=== PATIENT | female | born 1955 | race Caucasian/White ===

== ENCOUNTER 2023-02-22 09:33 | Outpatient (AMB) | payer MEDICARE, MEDICAID, SELFPAY ==
--- NOTE | 2023-02-22 09:40 | HO.NEPHOV_ITS ---
HPI HPI Comments History of Present Illness Details I had the privilege of seeing Luma accompanied by her in the office today. She has been having low blood sugars in the morning. She is not feeling dizzy. Her blood pressure has been at goal.ose REN-inhibitor. She has not had any blood work for renal functions recently. She does not take any nonsteroidal anti-inflammatory medications. Her levothyroxine dose has been adjusted recently. She denies any nausea, vomiting, diarrhea, shortness of breath, orthostatic symptoms, chest pain, proximal nocturnal dyspnea, orthopnea or pedal edema. She had no recent UTIs. She tries to be compliant with ad equate fluid intake. She is not taking any Jardiance now. FORMERLY [facility] Medical History (Updated 02/22/23 @ 13:26 by Kennedy Myers MD) Cervical cancer Thyroid cancer Hypertension Chronic kidney disease, stage 3a Surgical History (Updated 02/22/23 @ 09:48 by Vicky Welch MA) History of carpal tunnel surgery History of heart artery stent History of appendectomy History of cholecystectomy Family History Brother Diabetes Social History (Updated 02/22/23 @ 09:47 by iVcky Welch MA) Alcohol intake: never Patient Tobacco Use Status: Current everyday Tobacco user Vital Signs 02/22/23 09:42 Height 5 ft 4 in Weight 162 lb BMI 27.8 BP 130/60 Blood Pressure Location Lt brachial Position Sitting Pulse 79 Pulse Source Pulse Oximeter Pulse Oximetry (%) 99 Oxygen Delivery Method Room Air Physical Exam Vital Signs: Last Vital Signs Pulse 79 02/22/23 09:42 BP 130/60 02/22/23 09:42 Pulse Ox 99 02/22/23 09:42 Oxygen Delivery Method Room Air 02/22/23 09:42 BMI result Body Mass Index 27.8 Const General: comfortable and no acute distress Orientation/consciousness: patient oriented x3 HEENT Head: Yes normocephalic Mouth: Normal oral and palatal mucosa present Eyes EOM: EOMs intact bilaterally Neck Neck: Yes supple Resp Auscultation: clear to auscultation bilaterally Cardio Jugular venous distension: no JVD Rate: regular rate GI Palpation (GI): Soft to palpation Auscultation: normal bowel sounds General: Yes no CVA tenderness Back/Spine/Pelvis Back: no CVA tenderness Skin General skin exam: no rashes or lesions noted Neuro General: patient oriented x3 and moves all extremities Extrem General: Yes no pedal edema Assessment & Plan Assessment & Plan (1) Hypertension: Code(s): I10 - Essential (primary) hypertension Qualifiers: Hypertension type: primary hypertension Qualified Code(s): I10 - Essential (primary) hypertension (2) Chronic kidney disease, stage 3a: Code(s): N18.31 - Chronic kidney disease, stage 3a Plan Luma is known to have mild chronic kidney disease at baseline. She has been having low blood sugars in the mornings. She was advanced to cut back on her insulin at night. She has not had any significant hypoglycemias. Blood pressure has been at goal. She is on REN-inhibitor. She is not on any Jardiance she avoids nonsteroidal anti-inflammatory medications and maintains go od hydration. She has history of hyperkalemia. She has not had any renal function or electrolytes checked recently. I ordered the same. She will be a great candidate for SGLT2 I. Her diabetic regimen needs to be optimized. I did not make any other medication changes today. All questions answered. Follow-up given. Orders: Orders Creatinine Today I10 - Essential (primary) hypertension, N18.31 - Chronic kidney disease, stage 3a Electrolytes Today I10 - Essential (primary) hypertension, N18.31 - Chronic kidney disease, stage 3a Blood Urea Nitrogen Today I10 - Essential (primary) hypertension, N18.31 - Chronic kidney disease, stage 3a Protein Creatinine Ratio, Ur Today I10 - Essential (primary) hypertension, N18.31 - Chronic kidney disease, stage 3a Coding Level of Care Code Est Pt Level 3 (13892) Diagnoses Primary hypertension I10 Hypertension type: primary hypertension Chronic kidney disease, stage 3a N18.31 Results Reviewed Nephrology Results: No Data to Display
[2023-02-22 09:42] VITALS: BP 130/60; PULSE 79; O2SAT 99; BMI 27.8
== END 2023-02-22 10:14 | disposition home or self-care (01) ==
PROVIDERS: PCP Internal Medicine; Visit Provider Internal Medicine Nephrology
DX: I10 Essential (primary) hypertension (principal); N18.31 Chronic kidney disease, stage 3a
CPT/HCPCS: 99213

== ENCOUNTER → 2023-02-22 09:33 | Outpatient (BNVA) | payer MEDICARE, MEDICAID, SELFPAY | PROVIDERS: PCP Internal Medicine; Visit Provider Internal Medicine Nephrology | DX: I12.9 Hypertensive chronic kidney disease with stage 1 through stage 4 chronic kidney disease, or unspecified chronic kidney disease (principal); N18.31 Chronic kidney disease, stage 3a | CPT/HCPCS: 99212 ==

== ENCOUNTER 2023-04-20 08:54 | Outpatient (REF) | payer MEDICARE, MEDICAID, SELFPAY ==
[2023-04-20 13:48] LABS: Anion Gap 11 (12-20); Blood Urea Nitrogen 9 mg/dL (9-16); Carbon Dioxide 25 mmol/L (22-29); Chloride 109 mmol/L (96-108); Estimated Glomerular Filt Rate > 60; Potassium 4.3 mmol/L (3.3-5.1); Sodium 141 mmol/L (135-145)
[2023-04-20 14:04] LABS: Protein/Creatinine Ratio, Ur 0.16 (<0.2); Total Protein Urine Random 16 mg/dL (<12)
== END 2023-04-20 08:55 | disposition home or self-care (01) ==
LOC: HO.HKASLDS 08:54
PROVIDERS: Visit Provider Internal Medicine Nephrology
DX: I12.9 Hypertensive chronic kidney disease with stage 1 through stage 4 chronic kidney disease, or unspecified chronic kidney disease (principal); N18.31 Chronic kidney disease, stage 3a
CPT/HCPCS: 36415; 80051; 82565; 82570; 84156; 84520

== ENCOUNTER 2023-05-04 13:26 | Outpatient (AMB) | payer MEDICARE, MEDICAID, SELFPAY ==
--- NOTE | 2023-05-04 13:43 | HO.NEPHOV_ITS ---
HPI HPI Comments History of Present Illness Details I had the privilege of seeing Luma accompanied by her in the office today. She has been having low blood sugars in the morning. She is not feeling dizzy. Her blood pressure has been at goal. She had a fall ( not mechanical) 48 hours ago and sustained injury on the left flank and left shoulder . She has excruciating pain at the left flank where the bruise is. She denies chest pain, warning symptoms, palpitations or syncope associated with the event. Her BS was OK at that time. She did not take any nonsteroidal anti- inflammatory medications but only Tylenol. Her levothyroxine dose has been adj usted recently. She denies any nausea, vomiting, diarrhea, shortness of breath, orthostatic symptoms, chest pain, proximal nocturnal dyspnea, orthopnea or pedal edema. She had no recent UTIs. She tries to be compliant with adequate fluid intake. She is taking any Jardiance now. She feels she has dyspnea after the fall. REPLACED BY [facility] Medical History (Updated 05/04/23 @ 14:17 by Kennedy Myers MD) Cervical cancer Thyroid cancer Hypertension Chronic kidney disease, stage 3a Surgical History History of carpal tunnel surgery History of heart artery stent History of appendectomy History of cholecystectomy Family History Brother Diabetes Social History Alcohol intake: never Patient Tobacco Use Status: Current everyday Tobacco user Vital Signs 05/04/23 13:45 Height 5 ft 4 in Weight 155 lb 2 oz BMI 26.6 BP 116/60 Blood Pressure Location Rt brachial Position Sitting Pulse 73 Pulse Source Pulse Oximeter Pulse Oximetry (%) 98 Oxygen Delivery Method Room Air Physical Exam Vital Signs: Last Vital Signs Pulse 73 05/04/23 13:45 BP 116/60 05/04/23 13:45 Pulse Ox 98 05/04/23 13:45 Oxygen Delivery Method Room Air 05/04/23 13:45 BMI result Body Mass Index 26.6 Const General: comfortable and no acute distress Orientation/consciousness: patient oriented x3 HEENT Head: Yes normocephalic Mouth: Normal oral and palatal mucosa present Eyes EOM: EOMs intact bilaterally Neck Neck: Yes supple Resp Auscultation: clear to auscultation bilaterally Cardio Jugular venous distension: no JVD Rate: regular rate GI Palpation (GI): Soft to palpation Auscultation: normal bowel sounds General: Yes no CVA tenderness Back/Spine/Pelvis Other: Bruise over the left flank with tenderness Back: no CVA tenderness Skin General skin exam: no rashes or lesions noted Neuro General: patient oriented x3 and moves all extremities Extrem General: Yes no pedal edema Assessment & Plan Assessment & Plan (1) Chronic kidney disease, stage 3a: Code(s): N18.31 - Chronic kidney disease, stage 3a (2) Hypertension: Code(s): I10 - Essential (primary) hypertension Qualifiers: Hypertension type: primary hypertension Qualified Code(s): I10 - Essential (primary) hypertension (3) Fall: Code(s): W19.XXXA - Unspecified fall, initial encounter Qualifiers: Encounter type: initial encounter Qualified Code(s): W19.XXXA - Unspecified fall, initial encounter Plan Luma is known to have mild chronic kidney disease at baseline. She has been having low blood sugars in the mornings. She has not had any significant hypoglycemias. Blood pressure has been at goal. She is on REN-inhibitor. She is on any Jardiance. she avoids nonsteroidal anti-inflammatory medications and maintains good hydration. She has history of hyperkalemia. She has not had any renal function or electrolytes checked recently. I asked her to go to ER for eval especially to R/O rib fracture , pneumothorax etc. I did not make any other medication changes today. All questions answered. Follow-up given. Orders: Orders Blood Urea Nitrogen Today I10 - Essential (primary) hypertension, N18.31 - Chronic kidney disease, stage 3a, W19.XXXA - Unspecified fall, initial encounter Creatinine Today I10 - Essential (primary) hypertension, N18.31 - Chronic kidney disease, stage 3a, W19.XXXA - Unspecified fall, initial encounter Electrolytes Today I10 - Essential (primary) hypertension, N18.31 - Chronic kidney disease, stage 3a, W19.XXXA - Unspecified fall, initial encounter Protein Creatinine Ratio, Ur Today I10 - Essential (primary) hypertension, N18.31 - Chronic kidney disease, stage 3a, W19.XXXA - Unspecified fall, initial encounter Coding Level of Care Code Est Pt Level 4 (88428) Diagnoses Chronic kidney disease, stage 3a N18.31 Primary hypertension I10 Hypertension type: primary hypertension Fall, initial encounter W19.XXXA Encounter type: initial encounter Results Reviewed Nephrology Results: Sodium 141 mmol/L (135-145) 04/20/23 Potassium 4.3 mmol/L (3.3-5.1) 04/20/23 Chloride 109 mmol/L (96-108) H 04/20/23 Carbon Dioxide 25 mmol/L (22-29) 04/20/23 BUN 9 mg/dL (9-16) 04/20/23 Creatinine 0.82 mg/dL (0.5-1.4) 04/20/23 Urine Creatinine 98.10 mg/dL 04/20/23 Protein/Creatinin Ratio 0.16 (<0.2) 04/20/23
[2023-05-04 13:45] VITALS: BP 116/60; PULSE 73; O2SAT 98; BMI 26.6
== END 2023-05-04 14:23 | disposition home or self-care (01) ==
PROVIDERS: PCP Internal Medicine; Visit Provider Internal Medicine Nephrology
DX: N18.31 Chronic kidney disease, stage 3a (principal); I10 Essential (primary) hypertension; W19.XXXA Unspecified fall, initial encounter
CPT/HCPCS: 99214

== ENCOUNTER 2023-05-04 14:43 | Emergency (ER) | payer MEDICARE, MEDICAID, SELFPAY ==
--- NOTE | ~2023-05-04 | CT_ITS ---
EXAMINATION: CT HEAD WITHOUT CONTRAST CT CERVICAL SPINE WITHOUT CONTRAST CLINICAL INFORMATION: Fall. Head. COMPARISON: None available. TECHNIQUE: Contiguous axial imaging was performed from the skull base to vertex without intravenous administration of contrast. Contiguous axial imaging was performed from the upper chest through the skull base without intravenous administration of contrast. Coronal and sagittal reformats were obtained at the acquisition workstation. This CT examination was performed using dose optimization techniques as appropriate, variously including the following: *Automated exposure control. *Adjustment of mA and/or kV according to patient size (this includes techniques or standardized protocols for targeted exams where dose is matched to indication/reason for exam; i.e. extremities or head). *Use of iterative reconstruction technique. DLP: 851 mGy-cm FINDINGS: Head: There is no evidence of acute intracranial hemorrhage or edematous territorial infarction. Fraga-white matter differentiation is preserved. A few foci of hypoattenuation in the periventricular and deep white matter are consistent with mild microangiopathy. Proportional prominence of the ventricles and sulcal spaces without evidence of obstructive hydrocephalus. No abnormal mass effect or midline shift. No extra-axial fluid collections. No acute soft tissue or osseous abnormalities. Mild mucosal thickening of the paranasal sinuses. The mastoid air cells and middle ear cavities are clear. Cervical Spine: The atlantooccipital and atlantoaxial articulations remain well aligned. Congenital fusion of C5-C6. There is anatomic alignment of the vertebral bodies and posterior elements. No evidence of acute fracture or subluxation. The vertebral body heights are maintained. Mild to moderate degenerative disc disease at all additional levels. There appear to be moderate disc herniations at C4-C5 and C6-C7 leading to at least moderate spinal canal stenoses. Facet and uncovertebral joint arthropathy leads to osseous encroachment on the neural foramina from C3-C7. There is no prevertebral soft tissue swelling. Changes of prior thyroidectomy. The remaining cervical soft tissues are within normal limits. The lung apices demonstrate no abnormalities. CT/CT cervical spine wo IV con IMPRESSION: 1. No evidence of acute intracranial hemorrhage or edematous territorial infarction. Mild underlying microangiopathy and generalized cerebral volume loss. 2. No evidence of acute fracture or traumatic subluxation of the cervical spine. 3. Moderate multilevel degenerative spondyloarthropathy of the cervical spine. Most notably on this limited exam without intrathecal contrast, there appear to be moderate disc herniations at C4-C5 and C6-C7 leading to at least moderate spinal canal stenoses.
--- NOTE | ~2023-05-04 | CT_ITS ---
EXAMINATION: CT chest wo IV con, CT abdomen pelvis wo IV con CLINICAL INFORMATION: Reason for Exam left rib ecchymosis. fall COMPARISON: CT head and cervical spine 05/04/2023. TECHNIQUE: Unenhanced CT of the chest, abdomen and pelvis Intravenous Contrast: None This CT examination was performed using dose optimization techniques as appropriate, variously including the following: *Automated exposure control *Adjustment of mA and/or kV according to patient size (this includes techniques or standardized protocols for targeted exams where dose is matched to indication/reason for exam; i.e. extremities or head) *Use of iterative reconstruction technique DLP: 991 mGy-cm FINDINGS: Lungs and pleura: *6 mm x 6 mm rounded noncalcified left upper lobe pulmonary nodule (series 7 image 85). *9 mm x 2 mm x 5 mm focal pleural thickening of the minor fissure (series 7 image 186). *5 mm x 5 mm left lower lobe pulmonary nodule (series 7 image 190). *7 mm right 8mm left lower lobe subpleural nodule (series 7 image 2-4). *8mm by 7 mm left lower lobe subpleural noncalcified nodule contiguous with adjacent subpleural atelectasis (series 7 image 280). *6 mm x 5 mm right upper lobe noncalcified nodule (series 7 image 119). *A 9 mm x 9 mm subpleural noncalcified nodule is present in the right lung base (series 7 image 535) *A 4 mm right 4 mm nodule is noted in the right lower pulmonary lobe (series 7 image 248). *Trace left pleural effusion. *No pneumothoraces. Mediastinum: Moderate aortic calcific atherosclerosis. Partially visualized moderate-marked diffuse coronary artery calcific atherosclerosis. Normal heart size. No pericardial thickening or fluid collections. No mediastinal lymphadenopathy. CHEST WALL: No axillary lymphadenopathy. Left posterolateral thoracic wall soft tissue inflammatory changes. A 2.5 cm diameter intermediate density is present in the subcutaneous fat in this region likely representing a hematoma (series 14 image 68). Liver: Normal. Biliary system: Gallbladder is not visualized. No gross biliary duct dilatation. Pancreas: Mild diffuse atrophy. Mild reticulation of the fat within the root of the small bowel mesentery adjacent to the pancreas is noted. No peripancreatic fluid collections visualized. Spleen: Normal. No perisplenic fluid collections. Adrenal glands: Normal. Kidneys: Moderate diffuse renal atrophy. No hydronephrosis or perinephric inflammatory changes. No nephrolithiasis. Urinary bladder: Decompressed. Pelvic viscera: Atrophic uterus. No adnexal lesions. Gastrointestinal system: Moderate quantity of stool throughout the colon. No colonic dilatation or mural inflammatory changes. The appendix is not visualized. No pericecal inflammatory changes identified. Normal terminal ileum. No free intraperitoneal fluid or gas collections. Small hiatal hernia. Abdominal wall: No hernias. Left posterolateral upper quadrant subcutaneous inflammatory changes. Osseous structures: Minimally displaced fracture of the lateral segment of left eighth rib and ninth rib. Displaced transverse fractures of the posterolateral segments of the left 10, 11 ribs. The pelvis appears intact. Diffuse osteopenia is noted. No thoracolumbar vertebral body compression deformities identified. The visualized proximal femurs are intact. CT/CT abdomen pelvis wo IV con IMPRESSION: 1. Displaced transverse fractures of the posterolateral segments of the left 10th and 11th ribs. Minimally displaced fractures of the lateral segment of the left eighth and ninth ribs. No pneumothoraces. Trace left pleural effusion. No free intraperitoneal fluid or gas collections. Adjacent thoracic wall subcutaneous soft tissue inflammatory changes are present along with a 2.5 cm adjacent subcutaneous hematoma. 2. Mild reticulation of the fat within the root of the small bowel mesentery adjacent to the pancreas. No peripancreatic fluid collections. Findings could represent mild pancreatitis or mild mesenteric panniculitis. Similar findings may sometimes be seen as a chronic, asymptomatic finding of the root of the small bowel mesentery, sometimes attributed to asymptomatic lymphedema. No free intraperitoneal fluid or gas collections. 3. Scattered bilateral pulmonary nodules measuring up to 9 mm in diameter. Per the 2017 revised Fleischner Society guidelines, in low-risk patients recommend follow-up CT at 3-6 months and consideration of subsequent CT at 18-24 months. In patients at high-risk for pulmonary neoplasm, recommend follow-up CT at 3-[address] at 18-24 months. 4. Moderate diffuse bilateral renal atrophy. 5. Moderate-marked diffuse coronary artery calcific atherosclerosis. 6. Intact visualized proximal femurs. No evidence of acute hip fractures. 7. Moderate diffuse colonic stool burden.
[2023-05-04 16:02] VITALS: BP 124/50; PULSE 71; RESP 18; TEMP 37.2; O2SAT 99; BMI 26.6
--- NOTE | 2023-05-04 16:07 | ED_ITS ---
HPI - General Adult General Chief complaint: Fall Stated complaint: Back Rib Pain S/P Fall 05/02/23 Time Seen by Provider: 05/04/23 22:25 Source: patient Mode of arrival: ambulatory Limitations: no limitations History of Present Illness HPI narrative: 67-year-old female came in for evaluation of left side chest wall pain after slipped and fell in the bathroom into a bathtub on her left side of the chest on Wednesday night, patient been having severe left-sided abdominal pain, increased with movement and breathing, there is an ecchymosis to the left side of the chest. No head injury, no neck pain, no abdominal pain, no nausea, no vomiting, CP, no SOB. Patient is not taking AC. Patient is allergic to hydromorphone and morphine as causing GI symptoms but no severe anaphylactic reaction to the medication. Related Data Home Medications Medication Instructions Recorded Confirmed aspirin 81 mg tablet,delayed 81 mg PO DAILY 02/22/23 release atorvastatin 80 mg tablet 80 mg PO DAILY 02/22/23 fenofibrate 160 mg tablet 160 mg PO DAILY 02/22/23 fluticasone propionate 50 spray intranasal 02/22/23 mcg/actuation nasal spray,suspension folic acid 1 mg tablet 1 mg PO DAILY 02/22/23 gabapentin 600 mg tablet 600 mg PO BID 02/22/23 icosapent ethyl 1 gram capsule 2 g PO BID 02/22/23 insulin lispro 100 unit/mL subcut 02/22/23 subcutaneous pen (Humalog KwikPen (U-100) Insulin) levothyroxine 150 mcg tablet 150 mcg PO DAILY 02/22/23 lisinopril 2.5 mg tablet 2.5 mg PO DAILY 02/22/23 loratadine 10 mg tablet 10 mg PO DAILY 02/22/23 melatonin 10 mg tablet 10 mg PO BEDTIME PRN insomnia 02/22/23 metoprolol succinate 25 mg 25 mg PO DAILY 02/22/23 tablet,extended release 24 hr nicotine 21 mg/24 hr daily 1 patch topical DAILY 02/22/23 transdermal patch pantoprazole 20 mg tablet,delayed 20 mg PO DAILY 02/22/23 release sertraline 50 mg tablet 50 mg PO DAILY 02/22/23 empagliflozin 10 mg tablet 10 mg PO QAM 05/04/23 (Jardiance) evolocumab 140 mg/mL subcutaneous 140 mg subcut Q2W 05/04/23 pen injector (Repatha SureClick) Allergies Allergy/AdvReac Type Severity Reaction Status Date / Time hydromorphone [From Dilaudid] Allergy Unknown Verified 05/04/23 13:48 ibuprofen Allergy Unknown Verified 05/04/23 13:48 levofloxacin [From Levaquin] Allergy Unknown Verified 05/04/23 13:48 tramadol Allergy Unknown Verified 05/04/23 13:48 Review of Systems 2 Review of Systems: All other systems are reviewed and are negative Constitutional: Reports as per HPI and Reports no additional constitutional complaints Eyes: Reports as per HPI and Reports no additional eye complaints Reports system reviewed and no additional complaints, except as documented Cardiovascular: Reports as per HPI and Reports no additional cardiovascular complaints Respiratory: Reports as per HPI and Reports no additional respiratory complaints Gastrointestinal: Reports as per HPI and Reports no additional gastrointestinal complaints Genitourinary: Reports no additional female genitourinary complaints Musculoskeletal: Reports no additional musculoskeletal complaints Skin/Breast: Reports system reviewed and no additional complaints, except as docu Psychiatric: Reports no additional psychiatric complaints Endocrine: Reports no additional endocrine complaints Hematologic/Lymphatic: Reports no additional hematologic/lymphatic complaints Allergic/Immunologic: Reports no additional allergic/immunologic complaints Reports system reviewed and no additional complaints, except as documented and Reports Abnormal speech present FORMERLY [facility] Past Medical History Medical History Cervical cancer Thyroid cancer Hypertension Chronic kidney disease, stage 3a Surgical History History of carpal tunnel surgery History of heart artery stent History of appendectomy History of cholecystectomy Family History Family History Brother Diabetes Social History Social History Alcohol intake: never Patient Tobacco Use Status: Current everyday Tobacco user Smoked in Last 30 Days: Yes Use of substances other than those prescribed or required for medical reasons: No Advance Directives: No Advance Directives Information Provided: No Physical Exam ED Vital Signs: Vital Signs - 24 hr 05/04/23 16:02 05/04/23 19:58 05/04/23 21:57 Temperature 98.9 F Pulse Rate 71 68 68 Respiratory Rate 18 17 Blood Pressure 124/50 L 124/60 Pulse Oximetry 99 97 98 Oxygen Delivery Method Room Air Room Air Room Air 05/04/23 22:55 05/04/23 23:24 05/05/23 00:44 Temperature 98.5 F Pulse Rate 64 68 Respiratory Rate 16 16 16 Blood Pressure 118/45 L 126/52 L Pulse Oximetry 97 96 Oxygen Delivery Method Room Air Room Air 05/05/23 00:45 05/05/23 01:01 05/05/23 01:06 Temperature 98.2 F Pulse Rate 68 68 Respiratory Rate 16 16 16 Blood Pressure 126/52 L 111/47 L Pulse Oximetry 98 Oxygen Delivery Method Nasal Cannula 05/05/23 01:09 Temperature 98.2 F Pulse Rate 68 Respiratory Rate 16 Blood Pressure 111/47 L Pulse Oximetry Oxygen Delivery Method BMI result Body Mass Index 26.6 Vital signs have been reviewed and appear to be correct. Blood pressure elevated. Heart rate normal. Respiratory rate normal. Temperature normal. Oxygen saturation normal. Appearance: Alert. Oriented X3. No acute distress. Head: Normal external exam. Normocephalic. Atraumatic. No Sanchez signs noted. No raccoon eyes noted Eyes: PERRLA. EOMI. Conjunctiva and sclera normal. Eyelids normal. ENT: TM's Normal. Pharynx normal. Uvula midline. Moist mucous membranes. No trismus noted. No drooling noted. No muffled voice noted. Neck: Normal inspection. Neck supple. FROM. No adenopathy. Thyroid Normal. No meningeal signs. No neck mass noted. CVS: Normal heart rate and rhythm. Heart sound normal. No murmurs noted. Pulses normal throughout. Respiratory: No respiratory distress. Painless inspiration. Breath sounds normal. No wheezes/rales/rhonchi noted. Left-sided chest wall tenderness, step- off in the 10th and 11th left side ribs, ecchymosis to the left chest wall, No accessory muscle usage noted or decreased air movement noted. Abdomen: Soft and nontender. Bowel sounds normal in all 4 quadrants. No distention noted. No organomegaly noted. No visible injury noted. Back: No CVA tenderness. Full range of motion noted. Skin: Skin warm and dry. Normal skin color. Normal skin turgor. No rashes/lesions/lacerations noted. Extremities: No lower extremity edema. Extremities exhibit normal range of motion. Extremities nontender. Neuro: Oriented X 3. Cranial nerve exam: II-XII are grossly intact No motor deficit. No sensory deficit. Reflexes normal. Course Course Course Narrative: RME: 67 yold female presents to the ED for left rib pain after falling unto bath tub two days ago. patient slipped and fell unto left rib. postive for left rib ecchymosis. images ordered Reevaluation(s) Reevaluation #1: S/p fall with multiple rib fracture on the left side, case was discussed with Dr. Carter trauma surgeon at [facility] who accepted the patient to her service, patient will be transferred to [facility]. Pain improved after was given morphine in the ED. VSS at the time of the transfer. Time: 23:25 Medications Administered Discontinued Medications Generic Name Dose Route Start Last Admin Trade Name Freq PRN Reason Stop Dose Admin Sodium Chloride 1,000 mls @ 999 mls/hr 05/04/23 22:40 05/05/23 01:00 Ns IV 05/04/23 23:40 Infused .Q1H1M ONE Infusion Morphine Sulfate 2 mg 05/04/23 22:42 05/04/23 22:55 Morphine Sulfate 2 Mg/Ml Cartridge IVPUSH 05/04/23 22:43 2 mg ONCE ONE Administration Protocol Morphine Sulfate 2 mg 05/05/23 00:42 05/05/23 01:01 Morphine Sulfate 2 Mg/Ml Cartridge IVPUSH 05/05/23 00:43 2 mg ONCE ONE Administration Protocol Medical Decision Making Differential Diagnosis Differential Diagnoses: The differential diagnosis associated with the presentation includes (Closed head injury, cervical spine injury, multiple rib fracture, pneumothorax, hemothorax, subcutaneous hematoma of the chest, intra- abdominal pathology, electrolyte derangement, severe anemia.) Admission/Observation Consideration of admission/observation: Escalation of care including admission/observation considered Consult Healthcare Provider Management of the patient was discussed with: [facility] (Dr. Carter) Lab Data MDM Lab Attestation statement: I reviewed the patient's lab results. 05/04/23 21:52 05/04/23 21:52 Labs: Lab Results 05/04/23 05/04/23 Range/Units 21:52 22:53 WBC 8.9 (4.8-10.8) X10*3/uL RBC 3.46 L (4.20-5.50) X10*6/uL Hgb 11.2 L (12.0-16.0) g/dl Hct 33.5 L (37.0-47.0) % MCV 96.8 (80.0-98.0) fL MCH 32.4 (27.0-33.0) pg MCHC 33.4 (31.0-35.0) g/dl RDW 13.2 (11.0-16.0) % Plt Count 196 (160-400) X10*3/uL MPV 10.1 (9.4-12.3) fL Immature Gran % (Auto) 0.2 (0.0-0.4) % Neut % (Auto) 68.9 (45-73) % Lymph % (Auto) 23.1 (20-40) % Morris % (Auto) 5.5 (2-11) % Eos % (Auto) 1.5 (0-4) % Baso % (Auto) 0.8 (0-2) % Lymph # (Auto) 2.1 (1.2-4.9) X10*3/uL Morris # (Auto) 0.5 (0.1-1.2) X10*3/uL Eos # (Auto) 0.1 (0.0-0.4) X10*3/uL Baso # (Auto) 0.1 (0.0-0.2) X10*3/uL Abs Immat Gran (auto) 0.02 (0.00-0.03) X10*3/uL Absolute Neuts (auto) 6.1 (2.0-8.3) x10*3/uL Absolute Nucleated RBC 0.000 (0.0-0.012) X10*3/uL Nucleated RBC % (auto) 0.0 (0.0-0.2) /100WBC Sodium 144 (135-145) mmol/L Potassium 3.9 (3.3-5.1) mmol/L Chloride 112 H (96-108) mmol/L Carbon Dioxide 24 (22-29) mmol/L Anion Gap 12 (12-20) BUN 14 (9-16) mg/dL Creatinine 0.84 (0.5-1.4) mg/dL Estim Creat Clear Calc 64.3 Estimated GFR > 60 POC Glucose 82 (60-115) mg/dL Random Glucose 58 L* (60-115) mg/dL Calcium 8.5 (8.4-10.2) mg/dL Total Bilirubin 0.3 (0.0-1.0) mg/dL AST 22 (5-31) U/L ALT 14 (0-31) U/L Alkaline Phosphatase 109 (39-117) U/L Total Protein 6.1 L (6.5-8.0) g/dL Albumin 3.1 L (3.5-5.0) g/dL Lipase 14 (8-78) U/L Independent Interpretation I performed an independent interpretation of an: CT Scan (Head/C- spine/chest/abdomen: Multiple left rib fracture.) Radiology Impression Discussion of test interpretation with radiology: I have reviewed the radiologist's reading. Critical Care Time Critical Care Time Critical Care Time: Yes Total Critical Care Time: 60 Attestation: I spent 60 minutes providing critical care service to the patient, this including time spent at the bedside to evaluate the patient, reassess the patient, monitoring vital signs, review labs, and radiographic studies, counseling the patient/family, discussing the case with consultants, disposition the patient. Discharge Plan Discharge Clinical Impression: Fall, Multiple fractures of ribs of left side Patient Disposition: [facility] Transfer Details: To [facility]. Prescriptions: No Action insulin lispro [Humalog KwikPen Insulin] 100 unit/mL insulin pen subcut levothyroxine 150 mcg tablet 150 mcg PO DAILY icosapent ethyl 1 gram capsule 2 g PO BID melatonin 10 mg tablet 10 mg PO BEDTIME PRN (Reason: insomnia) pantoprazole 20 mg tablet,delayed release (DR/EC) 20 mg PO DAILY lisinopril 2.5 mg tablet 2.5 mg PO DAILY metoprolol succinate 25 mg tablet extended release 24 hr 25 mg PO DAILY fenofibrate 160 mg tablet 160 mg PO DAILY sertraline 50 mg tablet 50 mg PO DAILY fluticasone propionate 50 mcg/actuation spray,suspension intranasal atorvastatin 80 mg tablet 80 mg PO DAILY loratadine 10 mg tablet 10 mg PO DAILY aspirin 81 mg tablet,delayed release (DR/EC) 81 mg PO DAILY folic acid 1 mg tablet 1 mg PO DAILY gabapentin 600 mg tablet 600 mg PO BID nicotine 21 mg/24 hr patch 24 hour 1 patch topical DAILY Jardiance 10 mg tablet 10 mg PO QAM Repatha SureClick 140 mg/mL pen injector 140 mg subcut Q2W Interventions: Acute Care Transfer Worksheet (ED) Last Done: 05/05/23 01:10 Discharge Date/Time: 05/05/23 01:19
[2023-05-04 19:58] VITALS: BP 124/60; PULSE 68; O2SAT 97
[2023-05-04 21:57] VITALS: PULSE 68; RESP 17; O2SAT 98
[2023-05-04 21:58] LABS: MANUAL DIFF FLAG NO
[2023-05-04 21:59] LABS: Basophils Absolute Auto 0.1 X10*3/uL (0.0-0.2); Basophils Percent Auto 0.8 % (0-2); Eosinophils Absolute Auto 0.1 X10*3/uL (0.0-0.4); Eosinophils Percent Auto 1.5 % (0-4); Hematocrit 33.5 % (37.0-47.0); Hemoglobin 11.2 g/dl (12.0-16.0); Imm Gran Abs Auto 0.02 X10*3/uL (0.00-0.03); Imm Gran Pct Auto 0.2 % (0.0-0.4); Lymphocytes Absolute Auto 2.1 X10*3/uL (1.2-4.9); Lymphocytes Percent Auto 23.1 % (20-40); Mean Corpuscular HGB Conc 33.4 g/dl (31.0-35.0); Mean Corpuscular Hemoglobin 32.4 pg (27.0-33.0); Mean Corpuscular Volume 96.8 fL (80.0-98.0); Mean Platelet Volume 10.1 fL (9.4-12.3); Monocytes Absolute Auto 0.5 X10*3/uL (0.1-1.2); Monocytes Percent Auto 5.5 % (2-11); Neutrophils Absolute Auto 6.1 x10*3/uL (2.0-8.3); Neutrophils Percent Auto 68.9 % (45-73); Platelet Count 196 X10*3/uL (160-400); Red Blood Count 3.46 X10*6/uL (4.20-5.50); Red Cell Distribution Width 13.2 % (11.0-16.0); White Blood Count 8.9 X10*3/uL (4.8-10.8)
[2023-05-04 22:22] LABS: Alanine Aminotransferase 14 U/L (0-31); Albumin Level 3.1 g/dL (3.5-5.0); Alkaline Phosphatase 109 U/L (39-117); Anion Gap 12 (12-20); Aspartate Amino Transferase 22 U/L (5-31); Bilirubin Total 0.3 mg/dL (0.0-1.0); Blood Urea Nitrogen 14 mg/dL (9-16); Calcium 8.5 mg/dL (8.4-10.2); Carbon Dioxide 24 mmol/L (22-29); Chloride 112 mmol/L (96-108); Creatinine Clr Calc Pharmacy 64.3; Estimated Glomerular Filt Rate > 60; Glucose Random 58 mg/dL (60-115); Potassium 3.9 mmol/L (3.3-5.1); Sodium 144 mmol/L (135-145); Total Protein 6.1 g/dL (6.5-8.0)
--- NOTE | 2023-05-04 22:27 | PC.NURSE ---
rec critical value blood glucose 59- CT results reviewed with MD Jean Baptiste at bedside, will discuss case w/ BS for possible trauma trasfer
--- NOTE | 2023-05-04 22:49 | PC.NURSE ---
call out to [facility] for transfer, 20g peripheral IV's placed in right wrist and left forearm. well tolerated by pt
[2023-05-04] MEDS: 0.9 % Sodium Chloride 1,000 ML 999 ML IV (22:53)
[2023-05-04 22:55] VITALS: RESP 16
[2023-05-04] MEDS: Morphine Sulfate 2 MG/ML CARTRIDGE IVPUSH (22:55)
[2023-05-04 22:58] LABS: Lipase 14 U/L (8-78)
[2023-05-04 22:58] LABS: Glucose, Whole Blood 82 mg/dL (60-115)
[2023-05-04 23:24] VITALS: BP 118/45; PULSE 64; RESP 16; TEMP 36.9; O2SAT 97
--- NOTE | 2023-05-05 00:11 | PC.NURSE ---
called to give nurse to nurse and the nurse just entered a pt room and will call back in approx 10 min.
--- NOTE | 2023-05-05 00:37 | PC.NURSE ---
report given to Miracle at [facility], pt waiting for ambulance ride.
[2023-05-05 00:44] VITALS: BP 126/52; PULSE 68; RESP 16; O2SAT 96
[2023-05-05 00:45] VITALS: BP 126/52; PULSE 68; RESP 16
[2023-05-05 01:01] VITALS: RESP 16
[2023-05-05] MEDS: Morphine Sulfate 2 MG/ML CARTRIDGE IVPUSH (01:01)
[2023-05-05 01:06] VITALS: BP 111/47; PULSE 68; RESP 16; TEMP 36.8; O2SAT 98
[2023-05-05 01:09] VITALS: BP 111/47; PULSE 68; RESP 16; TEMP 36.8
== END 2023-05-05 01:19 | disposition short-term general hospital (02) ==
PROVIDERS: Emergency Provider Emergency Medicine; PCP Internal Medicine
DX: S22.42XA Multiple fractures of ribs, left side, initial encounter for closed fracture (principal); R07.89 Other chest pain; R51.9 Headache, unspecified; M54.2 Cervicalgia; M54.6 Pain in thoracic spine; F17.200 Nicotine dependence, unspecified, uncomplicated; W01.10XA Fall on same level from slipping, tripping and stumbling with subsequent striking against unspecified object, initial encounter; Y93.E1 Activity, personal bathing and showering; Y92.002 Bathroom of unspecified non-institutional (private) residence as the place of occurrence of the external cause; Y99.8 Other external cause status; Z79.899 Other long term (current) drug therapy; Z79.4 Long term (current) use of insulin
CPT/HCPCS: 36415; 70450; 71250; 72125; 74176; 80053; 82947; 83690; 85025; 96361; 96374; 96376; 99212; 99285; J2270

== ENCOUNTER 2023-06-22 09:04 | Outpatient (REF) | payer MEDICARE, MEDICAID, SELFPAY ==
[2023-06-22 12:59] LABS: Anion Gap 13 (12-20); Blood Urea Nitrogen 14 mg/dL (9-16); Carbon Dioxide 25 mmol/L (22-29); Chloride 105 mmol/L (96-108); Estimated Glomerular Filt Rate > 60; Potassium 4.2 mmol/L (3.3-5.1); Sodium 139 mmol/L (135-145)
[2023-06-22 18:58] LABS: Creatinine Urine 98.91 mg/dL; Protein/Creatinine Ratio, Ur 0.15 (<0.2); Total Protein Urine Random 15 mg/dL (<12)
== END 2023-06-22 09:05 | disposition home or self-care (01) ==
LOC: HO.HKASLDS 09:04
PROVIDERS: Visit Provider Internal Medicine Nephrology
DX: I12.9 Hypertensive chronic kidney disease with stage 1 through stage 4 chronic kidney disease, or unspecified chronic kidney disease (principal); N18.31 Chronic kidney disease, stage 3a; Z91.81 History of falling
CPT/HCPCS: 36415; 80051; 82565; 82570; 84156; 84520

== ENCOUNTER 2023-07-13 10:50 | Outpatient (AMB) | payer MEDICARE, MEDICAID, SELFPAY ==
[2023-07-13 11:22] VITALS: BP 82/50; PULSE 97; O2SAT 98; BMI 28.2
--- NOTE | 2023-07-13 11:22 | HO.NEPHOV_ITS ---
Vital Signs 07/13/23 11:22 Height 5 ft 4 in Weight 164 lb 8 oz BMI 28.2 BP 82/50 L Blood Pressure Location Lt brachial Position Sitting Pulse 97 Pulse Source Pulse Oximeter Pulse Oximetry (%) 98 Oxygen Delivery Method Room Air Intake Visit Reasons: Chronic kidney disease/ 2 MO FU/ Confirmed Account Contact Associate Required: No Accompanied by: Brother Allergies hydromorphone [From Dilaudid] Allergy (Verified 07/13/23 11:24) Unknown ibuprofen Allergy (Verified 07/13/23 11:24) Unknown levofloxacin [From Levaquin] Allergy (Verified 07/13/23 11:24) Unknown tramadol Allergy (Verified 07/13/23 11:24) Unknown HPI Comments Details: I had the privilege of seeing Luma accompanied by her in the office today. She has been having low blood sugars in the morning. She recently was found to have mass in the pancreas. She underwent biopsy of the lesion and was found it to be inconclusive. She had jaundice with elevated liver enzymes, which is better now. She is maintained follow-up with Gastroenterology as well as primary care physician. Her blood pressure has been at goal. She did not take any nonsteroidal anti-inflammatory medications but only Tylenol. She denies any nausea, vomiting, diarrhea, shortness of breath, orthostatic symptoms, chest pain, proximal nocturnal dyspnea, orthopnea but has pedal edema. She is not taking any Jardiance or REN-inhibitor now. She was accompanied by her and brother during this visit. They are concerned due to lack of definitive diagnosis regarding the mass in pancreas. [facility] Medical History Cervical cancer Thyroid cancer Hypertension Chronic kidney disease, stage 3a Surgical History History of carpal tunnel surgery History of heart artery stent History of appendectomy History of cholecystectomy Family History Brother Diabetes Social History Alcohol intake: never Patient Tobacco Use Status: Current everyday Tobacco user Physical Exam Vital Signs: Last Vital Signs Pulse 97 07/13/23 11:22 BP 82/50 L 07/13/23 11:22 Pulse Ox 98 07/13/23 11:22 Oxygen Delivery Method Room Air 07/13/23 11:22 BMI result Body Mass Index 28.2 Const General: comfortable and no acute distress Orientation/consciousness: patient oriented x3 HEENT Head: Yes normocephalic Mouth: Normal oral and palatal mucosa present Eyes EOM: EOMs intact bilaterally Neck Neck: Yes supple Resp Auscultation: clear to auscultation bilaterally Cardio Jugular venous distension: no JVD Rate: regular rate GI Palpation (GI): Soft to palpation Auscultation: normal bowel sounds General: Yes no CVA tenderness Back/Spine/Pelvis Back: no CVA tenderness Skin General skin exam: no rashes or lesions noted Neuro General: patient oriented x3 and moves all extremities Extrem General: Yes edema Results Reviewed Nephrology Results: Sodium 139 mmol/L (135-145) 06/22/23 Potassium 4.2 mmol/L (3.3-5.1) 06/22/23 Chloride 105 mmol/L (96-108) 06/22/23 Carbon Dioxide 25 mmol/L (22-29) 06/22/23 BUN 14 mg/dL (9-16) 06/22/23 Creatinine 0.80 mg/dL (0.5-1.4) 06/22/23 Urine Creatinine 98.91 mg/dL 06/22/23 Protein/Creatinin Ratio 0.15 (<0.2) 06/22/23 Assessment & Plan Assessment & Plan (1) Hypertension: Code(s): I10 - Essential (primary) hypertension Category: Medical Qualifiers: Hypertension type: primary hypertension Qualified Code(s): I10 - Essential (primary) hypertension (2) Chronic kidney disease, stage 3a: Code(s): N18.31 - Chronic kidney disease, stage 3a Category: Medical (3) Edema: Code(s): R60.9 - Edema, unspecified Category: Medical Qualifiers: Edema type: localized Qualified Code(s): R60.0 - Localized edema Plan Luma is known to have mild chronic kidney disease at baseline. Her renal functions are stable. She has edema due to hypoalbuminemia. I started her on furosemide 20 mg every other day for 2 weeks. Her blood pressure has been at goal. She is on REN-inhibitor. She is not taking Jardiance or lisinopril. she avoids nonsteroidal anti-inflammatory medications and maintains good hydration. She has history of hyperkalemia. She and her family was wondering about a 2nd opinion in [place] regarding pancreatic mass. I did not make any other medication changes today. All questions answered. Follow-up given. Orders: Orders Creatinine Today I10 - Essential (primary) hypertension, N18.31 - Chronic kidney disease, stage 3a, R60.9 - Edema, unspecified Blood Urea Nitrogen Today I10 - Essential (primary) hypertension, N18.31 - Chronic kidney disease, stage 3a, R60.9 - Edema, unspecified Electrolytes Today I10 - Essential (primary) hypertension, N18.31 - Chronic kidney disease, stage 3a, R60.9 - Edema, unspecified Medications: New furosemide (Lasix) 20 mg PO Q OTHER DAY 10 tabs 0RF Coding Level of Care Code Est Pt Level 4 (60133) Diagnoses Primary hypertension I10 Hypertension type: primary hypertension Chronic kidney disease, stage 3a N18.31 Localized edema R60.0 Edema type: localized
== END 2023-07-13 11:53 | disposition home or self-care (01) ==
PROVIDERS: PCP Internal Medicine; Visit Provider Internal Medicine Nephrology
DX: I10 Essential (primary) hypertension (principal); N18.31 Chronic kidney disease, stage 3a; R60.0 Localized edema
CPT/HCPCS: 99214

== ENCOUNTER → 2023-07-13 10:50 | Outpatient (BNVA) | payer MEDICARE, MEDICAID, SELFPAY | PROVIDERS: PCP Internal Medicine; Visit Provider Internal Medicine Nephrology | DX: I12.9 Hypertensive chronic kidney disease with stage 1 through stage 4 chronic kidney disease, or unspecified chronic kidney disease (principal); N18.31 Chronic kidney disease, stage 3a; R60.0 Localized edema | CPT/HCPCS: 99212 ==